=== PATIENT | female | born 1975 | race Two or more races ===

== ENCOUNTER 2016-07-04 07:59 | Day surgery (SDC) | payer OTHER ==
[2016-07-04] MEDS ORDERED: LACTATED RINGERS 1,000 ML IV ONE (08:51)
[2016-07-04] MEDS ORDERED: fentaNYL 250 MCG/5 ML VIAL IVP ONE (09:30)
[2016-07-04] MEDS ORDERED: MIDAZOLAM 2 MG/2 ML VIAL IVP ONE (09:30)
== END 2016-07-04 08:00 | disposition home or self-care (01) ==
PROC: 0DJD8ZZ Inspection of Lower Intestinal Tract, Via Natural or Artificial Opening Endoscopic (ICD-10-PCS; principal; 2016-07-04 09:00)
DX: K62.5 Hemorrhage of anus and rectum (principal); R10.31 Right lower quadrant pain; R10.32 Left lower quadrant pain; F32.9 Major depressive disorder, single episode, unspecified; Z86.010 Personal history of colon polyps
CPT/HCPCS: 45378; J3010; J7120

== ENCOUNTER 2016-07-31 14:15 | Outpatient (CLI) | payer OTHER | END 2016-07-31 14:16 | disposition home or self-care (01) | DX: R10.2 Pelvic and perineal pain (principal); R10.9 Unspecified abdominal pain; K62.5 Hemorrhage of anus and rectum ==

== ENCOUNTER 2017-03-06 10:57 | Outpatient (CLI) | payer OTHER ==
[2017-03-06 18:05] LABS: BASOPHILS # (AUTO) 0.1 10^3/uL (0.0-0.1); BASOPHILS % (AUTO) 1.2 %; EOSINOPHILS # (AUTO) 0.1 10^3/uL (0.0-0.7); HCT - HEMATOCRIT 37.5 % (37.0-47.0); HGB - HEMOGLOBIN 12.1 g/dL (12.0-16.0); LYMPHOCYTES # (AUTO) 1.7 10^3/uL (1.5-3.5); MEAN CORPUSCULAR HEMOGLOBIN 30.7 pg (27.0-31.0); MEAN CORPUSCULAR HGB CONC 32.2 g/dL (32.0-36.0); MEAN CORPUSCULAR VOLUME 95.2 fL (81.0-99.0); MEAN PLATELET VOLUME 10.7 fL (7.9-10.8); MONOCYTES # (AUTO) 0.4 10^3/uL (0.0-1.0); MONOCYTES % (AUTO) 8.7 %; NEUTROPHILS # (AUTO) 2.8 10^3/uL (1.5-6.6); NEUTROPHILS % (AUTO) 56.1 %; RED BLOOD COUNT 3.94 10^6/uL (4.20-5.40); RED CELL DISTRIBUTION WIDTH 15.3 % (12.0-15.0)
[2017-03-06 18:14] LABS: ALBUMIN/GLOBULIN RATIO 1.1 (1.0-2.2); BUN - BLOOD UREA NITROGEN 8 mg/dL (6-20); CALCIUM 9.1 mg/dL (8.5-10.3); CARBON DIOXIDE - CO2 24 mmol/L (21-32); CHLORIDE 102 mmol/L (101-111); CREATININE 0.6 mg/dL (0.4-1.0); GFR - MDRD 110 (>89); GLUCOSE 111 mg/dL (70-100); POTASSIUM 3.6 mmol/L (3.5-5.0); SODIUM 136 mmol/L (135-145); TOTAL PROTEIN 8.2 g/dL (6.7-8.2)
[2017-03-06 19:05] LABS: PLATELET ESTIMATE, MANUAL NORMAL (130-450,000) (NORMAL); PLATELET MORPHOLOGY 2+ GIANT PLATELETS (NORMAL); WBC MORPHOLOGY (MULTIPLE) NORMAL APPEARANCE (NORMAL)
== END 2017-03-06 10:58 | disposition home or self-care (01) ==
LOC: LAB.F 10:57
PROVIDERS: ATTEND Nurse Practitioner Family
DX: N92.4 Excessive bleeding in the premenopausal period (principal)
CPT/HCPCS: 36415; 80053; 84443; 85025

== ENCOUNTER 2017-05-09 06:13 | Day surgery (SDC) | payer OTHER ==
[2017-05-09] MEDS ORDERED: LACTATED RINGERS 1,000 ML IV ONE ×2 (06:27→08:25)
[2017-05-09 06:47] LABS: HCG UR QUAL NEGATIVE
[2017-05-09] MEDS ORDERED: DEXAMETHASONE 4 MG/ML VIAL IVP ONE (08:35)
[2017-05-09] MEDS ORDERED: fentaNYL 100 MCG/2 ML VIAL IVP ONE (08:35)
[2017-05-09] MEDS ORDERED: PROPOFOL 200 MG/20 ML VIAL IVP ONE (08:35)
[2017-05-09] MEDS ORDERED: MIDAZOLAM 2 MG/2 ML VIAL IVP ONE (08:35)
[2017-05-09] MEDS ORDERED: LIDOCAINE-MPF 2% 5 ML VIAL IM ONE (08:35)
[2017-05-09] MEDS ORDERED: ONDANSETRON 4 MG/2 ML VIAL IVP ONE (08:35)
[2017-05-09] MEDS ORDERED: KETOROLAC 30 MG/ML VIAL IVP ONE (08:35)
[2017-05-09 09:40] VITALS: BP 106/46
--- NOTE | 2017-05-09 23:24 | OPERATIVE REPORT ---
([id number] MERGED) ACCT: [id number] DATE OF SURGERY: 05/09/2017 PREOPERATIVE DIAGNOSES 1. Menorrhagia. 2. Endometrial polyp. POSTOPERATIVE DIAGNOSES 1. Menorrhagia. 2. Endometrial polyp. NAME OF PROCEDURE: NovaSure endometrial ablation. SURGEON: Robert Valerio MD ANESTHESIA: General with an LMA. DESCRIPTION OF PROCEDURE: In the lithotomy position under general anesthesia, the perineum and vagina were prepped and draped in the usual sterile fashion. A speculum was placed in the vagina. The cervix was grasped with a single-toothed tenaculum. The cervix was dilated to a 6 with Hegar dilators. The NovaSure sound was utilized to measure the endometrial cavity length of 6.5. The NovaSure device was then inspected, displayed and found intact and replaced in its sheath. It was placed into the endometrial cavity. The width was determined to be 2.6. Both of these measurements were entered into the NovaSure device. The test was completed successfully, and the NovaSure device enabled. At the completion of ablation, the device was removed and inspected and found to be intact. Blood loss was minimal. The patient tolerated the procedure well. There were no complications. JOB #: [id number] [facility] JOB #:[id number] [facility]
--- NOTE | 2017-05-11 10:02 | PREOP HISTORY & PHYSICAL ---
ACCT: [id number] ([id number] MERGED) DATE OF ADMISSION/SURGERY: 05/09/2017 HISTORY OF PRESENT ILLNESS: The patient is a 41-year-old female, 2, para 1, AB 1, who has been for over a year taking oral contraceptives to control her menorrhagia. During February, she had continuous bleeding, which has essentially been continuous since. She had an endometrial biopsy which showed an endometrial polyp and a suggestion of a small fibroid, but more intramural than submucosal. The patient has requested more definitive treatment in the form of an endometrial ablation with NovaSure. PAST HISTORY: The patient had a section in 1997. She has had no other hospitalizations. She had a normal colonoscopy in May of 2016. ALLERGIES: PENICILLIN. CURRENT MEDICATIONS: None. FAMILY HISTORY: Unremarkable. REVIEW OF SYSTEMS: Negative. SOCIAL HISTORY: The patient has never been a smoker. She denies drugs and alcohol. PHYSICAL EXAMINATION HEENT: Within normal limits. NECK: No thyromegaly. LUNGS: Clear. HEART: Regular rhythm. There is no murmur or gallop. ABDOMEN: Soft. There are no masses or organomegaly. EXTREMITIES: Normal. NEUROLOGIC: Grossly intact. PELVIC: Introitus and vagina are normal. The cervix is normal. The uterus is felt to be approximately 6 weeks size, i.e., slightly enlarged. There are no palpable adnexal masses. IMPRESSION: Menorrhagia and an endometrial polyp. PLAN: Endometrial ablation with NovaSure. The procedure has been explained in detail, as well as the anticipated results and potential complications, and the patient agrees to proceed. [place]
== END 2017-05-09 06:14 | disposition home or self-care (01) ==
LOC: SDS 06:13
PROVIDERS: ATTEND Obstetrics & Gynecology
PROC: 0U5B7ZZ Destruction of Endometrium, Via Natural or Artificial Opening (ICD-10-PCS; principal; 2017-05-09 07:30)
DX: N92.0 Excessive and frequent menstruation with regular cycle (principal); N84.0 Polyp of corpus uteri
CPT/HCPCS: 58353; 81025; J7120